=== PATIENT | male | born 1980 | race Caucasian/White ===

== ENCOUNTER 2017-03-27 09:30 | Emergency (ER) | payer OTHER ==
[2017-03-27 09:55] VITALS: BP 112/69
--- NOTE | 2017-03-27 10:56 | ED Physician Documentation ---
Abdominal Pain - HISTORIAN Historian: patient - HPI Stated Complaint: L abd pain Chief Complaint: Abdominal Pain Additonal Information: Patient was seen at [facility] on March 25. Was diagnosed with constipation. was told to take Miralx and took it for several days. Took some citrate of MG and has been having liquid stool, no blood noted. Pain in the LLQ area with radiation into the back. Does not rember when last normal BM was. Normally has a BM in the AM daily. started ot have abd pain. Cramping sharp pain. Onset: days ago (5 days) Duration: constant Timing: worse Context: denies: out of country travel, bad food Severity: mild Quality: pain Associated Symptoms: chills, nausea, vomiting (has been trying to induce vomiting). denies: fever Relieved by: nothing Further Comments: no - ROS CONST: no problems GI/: constipation. denies: black stools, bloody urine, bloody stools, dark urine, problems urinating - SOCIAL HX Smoking History: less than 1 pack/day (1/2 ppd) Alcohol Use: occasionally Drug Use: none - FAMILY HX Family History: no significant history - PAST HX Past History: kidney stones Ischemic Bowel Risk Factors: none Other History: none Surgeries/Procedures: none Immunizations: referred to PCP Home Medications: Ambulatory Orders Medication Instructions Recorded Ibuprofen 600 mg PO QID u2 04/28/14 HYDROcodone /APAP 5/325 [[place] 1 each PO Q4 PRN #30 tablet 03/27/17 5/325] Tamsulosin HCl [Flomax] 0.4 mg PO [id number] #30 cap.er.24h 03/27/17 Allergies/Adverse Reactions: Allergies Allergy/AdvReac Type Severity Reaction Status Date / Time No Known Allergies Allergy Unverified 08/24/13 20:43 - VITAL SIGNS Vital Signs: Vital Signs Temp Pulse Resp BP Pulse Ox 98.5 F 78 18 112/69 96 03/27/17 16:12 03/27/17 16:12 03/27/17 16:12 03/27/17 16:12 03/27/17 16:12 - REVIEWED ASSESSMENTS Nursing Assessment Reviewed: Yes Vitals Reviewed: Yes Progress - Progress Progress: 1304 Patient advised of findings with CT scan. Will start IV fluids and give flomax. 1430 Patient states that his pain is getting worse again. No nausea or vomiting noted. 1604 Pateint states that he is doing much better at this time. I have contacted urologist about patient and mildly elevated creatinine. Advised to continue with pain medication and to push fluids and start Flomax. Pt was givein number to call clinic for further evaluation. If pain continued to return to ED at [facility] per urologist ED Results Lab/Radiology - Lab Results Lab Results: Lab Results 03/27/17 03/27/17 03/27/17 15:34 11:35 11:35 WBC 11.10 K/ul K/ul (4.00-12.00) RBC 4.51 M/ul M/ul (3.90-5.20) Hgb 14.3 g/dL g/dL (12.0-18.0) Hct 43.1 % % (37.0-53.0) MCV 95.6 fl fl (80.0-100.0) MCH 31.6 pg pg (28.0-34.0) MCHC 33.1 g/dL g/dL (30.0-36.0) RDW 12.6 % % (11.3-14.3) Plt Count 263 K/mm3 K/mm3 (130-400) Neut % (Auto) 79.0 % % (39.0-79.0) Lymph % (Auto) 10.9 % L % (16.0-50.0) [place] % (Auto) 5.7 % % (0.0-11.0) Eos % (Auto) 2.8 % % (0.0-6.8) Baso % (Auto) 0.6 (0.0-1.5) Neut # (Auto) 8.8 # k/uL H # k/uL (1.4-7.7) Lymph # (Auto) 1.2 # k/uL # k/uL (0.6-4.0) [place] # (Auto) 0.6 # k/uL # k/uL (0.0-0.9) Eos # (Auto) 0.3 # k/uL # k/uL (0.0-0.6) Baso # (Auto) 0.1 # k/uL # k/uL (0.0-0.5) Reactive Lymphs % 1.1 % % (0.0-5.0) Reactive Lymphs # 0.1 # k/uL # k/uL (0.0-0.8) Sodium 139 mmol/L mmol/L (136-145) Potassium 4.2 mmol/L mmol/L (3.5-5.1) Chloride 101 mmol/L mmol/L (98-107) Carbon Dioxide 27 mmol/L mmol/L (22-30) BUN 20 mg/dL mg/dL (9-20) Creatinine 1.60 mg/dL H mg/dL (0.66-1.25) Estimated Creat Clear 154 Est GFR ( Amer) > 60 (60 - ) Est GFR (Non-Af Amer) 52 L (60 - ) Glucose 90 mg/dL mg/dL (74-106) Calcium 9.1 mg/dL mg/dL (8.4-10.2) Total Bilirubin 1.2 mg/dL mg/dL (0.2-1.3) AST 24 U/L U/L (15-46) ALT 34 U/L U/L (13-69) Alkaline Phosphatase 75 U/L U/L (38-126) Total Protein 6.4 g/dL g/dL (6.3-8.2) Albumin 4.0 g/dL g/dL (3.5-5.0) Urine Color Jeanne (YELLOW) Urine Appearance Clear (CLEAR) Urine pH 6.0 (5.0 - 8.0) Ur Specific [place] 1.025 (1.010-1.030) Urine Protein 1+ mg/dL H mg/dL (NEGATIVE) Urine Ketones 2+ mg/dL H mg/dL (NEGATIVE) Urine Occult Blood Negative (NEGATIVE) Urine Nitrite Negative (NEGATIVE) Urine Bilirubin 1+ H (NEGATIVE) Urine Urobilinogen 0.2 Eu Eu (0.2-1.0) Ur Leukocyte Esterase Negative (NEGATIVE) Urine Glucose Negative mg/dL mg/dL (NEGATIVE) - Radiology Radiology Impressions: Examination: Obstruction series History: Abdominal discomfort Findings: 6 views obtained of the chest and abdomen. Single view the chest without focal infiltrative process. Normal cardiac silhouette. No abnormal dilation of the large or small bowel. Air and stool throughout the large bowel. 5 mm calcification projecting near the left renal fossa. No other suspicious calcifications. Osseous structures are appropriate for age. Impression: No acute cardiopulmonary process. No obstruction. 5 mm left renal region calcification - consider obtaining noncontrast CT urolithiasis to further evaluate. Examination: CT Abdomen/pelvis History: Left flank discomfort Comparison exams: Plain film dated 27 March 2017 Technique: CT Abdomen/pelvis without contrast protocol. Findings: Left kidney is enlarged when compared with the right. Few right calyceal calcifications. Near the left ureteropelvic junction is a 5 mm calcification - dilation of the ureter and intrra renal collecting system proximally. Remainder of the left ureter without abnormal dilation. Right ureter without calcification or abnormal dilation. Bladder margin is within normal limits. Prostate calcifications. Liver, spleen, adrenals, gallbladder and pancreas are without gross irregularity given exam technique. No gallstones. Abdominal aorta without peripheral atherosclerotic disease or aneurysm. Cardiac silhouette is not enlarged. No pericardial effusion. Bowel unopacified limiting evaluation. No mesenteric inflammatory changes or free fluid. No abnormal small bowel dilation. Stool throughout the large bowel limiting sensitivity. What appears to be the appendix is without inflammation. Osseous structures demonstrate degenerative changes - specifically L5/S1. Lung bases demonstrate dependent atelectasis. No effusion. Impression: 5 mm calcification at the left ureteropelvic junction with dilation of the ureter and intrarenal collecting system proximally - obstructive uropathy. Right nephrolithiasis. No evidence for other acute upper abdominal organ inflammatory process. No abnormal bowel dilation or inflammation. Lung base atelectasis. No effusion. - Orders Orders: ED Orders Category Date Time Status Place IV Lock 1T Care 03/27/17 11:03 Active ABDOMEN WITH PA CHEST [ABD SERIES PA CHEST] [RAD] Stat Exams 03/27/[address] ABD & PELVIS W/O CON Routine Exams 03/27/17 Completed CBC/PLATELET/DIFF Routine Lab 03/27/17 11:35 Completed CMP Routine Lab 03/27/17 11:35 Completed UA MACRO DIP ONLY Routine Lab 03/27/17 15:34 Completed 0.9 % Sodium Chloride [Normal Saline] 500 ml Med 03/27/17 12:57 Discontinued IV NOW Ketorolac Tromethamine [Toradol] Med 03/27/17 11:03 Discontinued 30 mg IVP NOW ONE Tamsulosin HCl [Flomax] Med 03/27/17 13:30 Discontinued 0.4 mg PO .STK-MED ONE Tamsulosin HCl [Flomax] Med 03/27/17 18:00 Discontinued 0.4 mg PO [id number] fentaNYL CITRATE/PF [Duragesic] Med 03/27/17 14:42 Discontinued 100 mcg .ROUTE .STK-MED ONE fentaNYL CITRATE/PF [Duragesic] Med 03/27/17 14:41 Discontinued 50 mcg IVP NOW ONE Abdominal Pain Physical Exam - Physical Exam General Appearance: alert, moderate distress NECK: normal inspection, supple. No: lymphadenopathy RESPIRATORY: no resp distress, chest non-tender, breath sounds normal. No: wheezes, rales, rhonchi CVS: reg rate & rhythm, heart sounds normal, equal pulses, no murmur, no gallop ABDOMEN: soft, normal bowel sounds, no distension, tenderness (LLU). No: rebound, guarding BACK: normal inspection, no CVA tenderness SKIN: warm/dry, normal color EXTREMITIES: non-tender, normal range of motion, no evidence of injury, no edema NEURO: oriented X3, CN's nml as tested, motor nml, sensation nml, mood/affect nml Vital Signs: Vital Signs Temp Pulse Resp BP Pulse Ox 98.5 F 78 18 112/69 96 03/27/17 16:12 03/27/17 16:12 03/27/17 16:12 03/27/17 16:12 03/27/17 16:12 Discharge Clincal Impression: Kidney stone Prescriptions: HYDROcodone /APAP 5/325 [[place] 5/325] 1 each PO Q4 PRN #30 tablet PRN Reason: Pain Tamsulosin HCl [Flomax] 0.4 mg PO [id number] #30 cap.er.24h Referrals: Primary Doctor,No [REFERRING] - 2 Days Additional Instructions: Drink a lot of fluids. Take hydrocodone for pain as needed. Follow-up with urologist in clinic at [phone]. If you continue to have a lot of pain to be seen at [facility] ED per urologist. Strain urine for the next 4 days. Condition: Stable Disposition: HOME, SELF-CARE Decision to Admit: NO Date of Decison to Admit: 03/27/17 Decision Time: 15:54
[2017-03-27] MEDS: KETOROLAC TROMETHAMINE 30 MG/1ML VIAL IVP ONE (11:08)
[2017-03-27 11:41] LABS: BASOPHILS % 0.6 (0.0-1.5); EOSINOPHILS % 2.8 % (0.0-6.8); MEAN CORPUSCULAR HEMOGLOBIN 31.6 pg (28.0-34.0); MEAN CORPUSCULAR VOLUME 95.6 fl (80.0-100.0); MONOCYTES % 5.7 % (0.0-11.0); NEUTROPHILS # 8.8 # k/uL (1.4-7.7)
[2017-03-27 11:54] LABS: eGFR (African) > 60; eGFR (Non-African) 52
[2017-03-27] MEDS: TAMSULOSIN HCL 0.4 MG CAP.ER.24H PO SCH (13:26)
[2017-03-27] MEDS: 0.9 % SODIUM CHLORIDE 500 ML IV ONE (13:26)
--- NOTE | 2017-03-27 13:42 | Diagnostic Imaging Report ---
JUANJO RICHARDSON [facility] [address] [facility] [address] [address] Report Submission Date: Mar 27, 2017 12:04:23 PM NAVIGATION TEACHER Patient Study Name: MARY LOU NUNEZ Date: Mar 27, 2017 11:33:38 AM NAVIGATION TEACHER Modality Type: CR Gender: M Description: CHEST,ABDOMEN : 78 Institution: [facility] Physician: JUANJO RICHARDSON Examination: Obstruction series History: Abdominal discomfort Findings: 6 views obtained of the chest and abdomen. Single view the chest without focal infiltrative process. Normal cardiac silhouette. No abnormal dilation of the large or small bowel. Air and stool throughout the large bowel. 5 mm calcification projecting near the left renal fossa. No other suspicious calcifications. Osseous structures are appropriate for age. Impression: No acute cardiopulmonary process. No obstruction. 5 mm left renal region calcification - consider obtaining noncontrast CT urolithiasis to further evaluate. Electronically signed on Mar 27, 2017 12:04:23 PM NAVIGATION TEACHER by: Rian PARK
--- NOTE | 2017-03-27 13:43 | Diagnostic Imaging Report ---
JUANJO RICHARDSON [facility] [address] [facility] [address] [place], [place]. [address] Report Submission Date: Mar 27, 2017 12:51:23 PM PASTORAL ASSISTANT Patient Study Name: MARY LOU NUNEZ Date: Mar 27, 2017 12:24:17 PM PASTORAL ASSISTANT Modality Type: CT\SR Gender: M Description: CT ABD & PELVIS W/O CO : 78 Institution: [facility] Physician: JUANJO RICHARDSON Examination: CT Abdomen/pelvis History: Left flank discomfort Comparison exams: Plain film dated 27 March 2017 Technique: CT Abdomen/pelvis without contrast protocol. Findings: Left kidney is enlarged when compared with the right. Few right calyceal calcifications. Near the left ureteropelvic junction is a 5 mm calcification - dilation of the ureter and intrra renal collecting system proximally. Remainder of the left ureter without abnormal dilation. Right ureter without calcification or abnormal dilation. Bladder margin is within normal limits. Prostate calcifications. Liver, spleen, adrenals, gallbladder and pancreas are without gross irregularity given exam technique. No gallstones. Abdominal aorta without peripheral atherosclerotic disease or aneurysm. Cardiac silhouette is not enlarged. No pericardial effusion. Bowel unopacified limiting evaluation. No mesenteric inflammatory changes or free fluid. No abnormal small bowel dilation. Stool throughout the large bowel limiting sensitivity. What appears to be the appendix is without inflammation. Osseous structures demonstrate degenerative changes - specifically L5/S1. Lung bases demonstrate dependent atelectasis. No effusion. Impression: 5 mm calcification at the left ureteropelvic junction with dilation of the ureter and intrarenal collecting system proximally - obstructive uropathy. Right nephrolithiasis. No evidence for other acute upper abdominal organ inflammatory process. No abnormal bowel dilation or inflammation. Lung base atelectasis. No effusion. Electronically signed on Mar 27, 2017 12:51:23 PM PASTORAL ASSISTANT by: Rian PARK
[2017-03-27] MEDS: fentaNYL CITRATE/PF 100 MCG/ 2ML AMP IVP ONE (14:53)
[2017-03-27] MEDS: fentaNYL CITRATE/PF 100 MCG/ 2ML AMP ONE (16:04)
[2017-03-27] MEDS: TAMSULOSIN HCL 0.4 MG CAP.ER.24H PO ONE (16:16)
[2017-03-27 17:59] LABS: APPEARANCE,URINE CLEAR (CLEAR); COLOR,URINE AMBER (YELLOW); OCCULT BLOOD,URINE NEGATIVE (NEGATIVE); UROBILINOGEN URINE 0.2 Eu (0.2-1.0)
== END 2017-03-27 16:12 | disposition home or self-care (01) ==
LOC: ED 09:30
DX: N20.0 Calculus of kidney (principal)
CPT/HCPCS: 74022; 74176; 80053; 81002; 85025; 96365; 96375; 99283; J1885; J3010; J7060; S1016